=== PATIENT | female | born 1960 | race Caucasian/White ===

== ENCOUNTER 2017-06-16 06:55 | Outpatient (CLI) ==
[2015-11-30 14:35] VITALS: BMI 31.2
--- NOTE | 2017-06-16 09:57 | DI ---
Exam: Cervical spine complete with obliques and flexion and extension. HISTORY: Neck pain. Comparison: MRI cervical spine 12/04/2015. Findings: Anterior, lateral, open-mouth, bilateral oblique and lateral flexion and extension images of the cervical spine are submitted. These demonstrate mild levoscoliosis with multilevel mild to mo derate degenerative disc and facet arthropathy. There is no compression fracture. 2 mm anterolisthe sis of C3 on C4 is noted. The facet joints appear grossly aligned and intact with multilevel osseous neural foraminal encroachment, greatest on the right C5-6. There is no abnormal motion with flexion and extension imaging. The odontoid process appears intact and normally centered. The prevertebral soft tissue within normal limits. The patient is edentulous. Impressions: Mild levoscoliosis. Multilevel mild to moderate degenerative disease with no compressi on fracture. 2 mm anterolisthesis of C3-C4. This appears stable with flexion and extension. No abnormal motion with flexion and extension imaging.
--- NOTE | 2017-06-16 10:29 | MRI ---
EXAM: Cervical spine MRI without contrast. HISTORY: Neck pain. COMPARISON: Cervical spine radiographs 06/16/2079 cervical spine MRI 12/04/2015. TECHNIQUE: Multiplanar, multisequence MR images were acquired cervical spine without contrast. FINDINGS: Patchy T2 hyperintensity is present in the bilateral naveen, greater on the left. There is no cerebellar tonsillar ectopia. The cervical cord has normal signal intensity. Mucosal thickening of fluid opacifies a few right mastoid air cells and a mild number of the left mastoid air cells. Th ere is straightening of the usual cervical lordosis and 1 mm retrolisthesis of C3 on C4. Ventral spo ndylosis is present at C4-5 and C7-T1 and there is osteophytosis with disc space narrowing at C5-6 an d C6-7. The cervical vertebra are normal in height and intrinsic bone marrow signal. There are no p aravertebral masses. Visualized lung apices are clear. C2-3: The intervertebral disc is normal. Moderate right hypertrophic facet arthropathy is present w hich causes mild to moderate right neural foraminal stenosis. C3-4: There is anterolisthesis of C3 on C4 which produces a pseudo disc bulge. Minor bilateral unco vertebral hypertrophy is present, greater on the right and there is mild left and moderate right hype rtrophic facet arthropathy and mild to moderate left and moderate right neural foraminal stenosis. T here is no central canal stenosis. C4-5: There is a posterior disc osteophyte complex with a small central disc protrusion and bilatera l uncovertebral hypertrophy. There is mild left and minor right neural foraminal stenosis. C5-6: There is a diffuse disc osteophyte complex with the disc component larger than the osteophyte component and a superimposed left paracentral disc protrusion that indents the left cervical cord and effaces the left lateral recess where it may adversely contact the ventral left C6 nerve root. Bila teral uncovertebral hypertrophy is present and there is mild spinal stenosis and severe right and mod erately severe left neural foraminal stenosis. AP diameter of the thecal sac is 8.6 mm. C6-7: There is a mild diffuse spondylotic disc bulge and bilateral uncovertebral hypertrophy. This causes mild to moderate left and moderate right neural foraminal stenosis. There is no central canal stenosis. C7-T1: There is a trace anterolisthesis of C7 on T1 and there is a small posterior disc bulge and mi nor bilateral facet arthropathy. IMPRESSION: 1. Stable mild to moderate cervical degenerative spondylosis with mild spinal stenosis at C5-6. 2. Moderate discogenic disease C5-6 with small left paracentral disc protrusion that mildly indents the cervical cord without edema and causes left lateral recess stenosis with possible encroachment on the ventral left C6 nerve root. 3. Multilevel foraminal stenosis.
== END 2017-06-16 06:56 | disposition home or self-care (01) ==
LOC: RAD 06:55
PROVIDERS: ATTEND Orthopaedic Surgery
DX: M54.2 Cervicalgia (principal)

== ENCOUNTER 2017-07-01 12:18 | Outpatient (CLI) ==
[2015-11-30 14:35] VITALS: BMI 31.2
--- NOTE | 2017-07-01 13:12 | DI ---
EXAM: Seven views of the lumbar spine. History: Lower back pain. Comparison: Lumbar spine radiograph 11/30/2015 Findings: No acute fracture or subluxation of the lumbar spine. Moderate to severe disc space narro wing at T11-T12 with endplate sclerosis and osteophyte formation. The lumbar disc space heights are preserved. Cholecystectomy clips. No instability identified with flexion or extension maneuvers Impression: 1. No acute osseous abnormality of the lumbar spine. 2. Moderate to severe degenerative disc disease at T11-T12.
--- NOTE | 2017-07-03 01:20 | MRI ---
MRI of the lumbar spine HISTORY: Low back pain. COMPARISON: 07/19/2014 PROCEDURE: Multiplanar, multisequence MRI protocol including sagittal T1-weighted, sagittal T2-weigh chasity, sagittal inversion recovery, coronal T2-weighted, axial T1-weighted and axial T2-weighted sequen maru. FINDINGS: There are five non-rib bearing lumbar vertebrae. Vertebral alignment demonstrates straight ening of upper lumbar lordosis consistent with earlier examination. Vertebral body height is well ma intained. Marrow signal is within normal limits for age. The intervertebral discs appear normal in height and signal. There is evidence of loss of disc and desiccation, ventral spondylosis and Modic t ype 2 endplate changes at T11-12. The conus medullaris appears normal in position and configuration a nd signal. The caliber of the spinal canal is intrinsically within normal limits. The prevertebral a nd paraspinous soft tissues appear to be within normal limits. Segmental analysis: T12-L1: There is no significant disc bulge at this level. The spinal canal is not significantly narr owed. The subarticular spaces and lateral recesses are not significantly narrowed. The neural foramin a are not stenosed. The conus crosses this level. L1-L2: There is no significant disc bulge at this level. The spinal canal is not significantly narro wed. The subarticular spaces and lateral recesses are not significantly narrowed. The neural foramina are not stenosed. The conus terminates just below this level. L2-L3: There is a modest disc bulge with a small left paramedian protrusion impressing the ventral th ecal sac at this level. The spinal canal is not significantly narrowed. The subarticular spaces and lateral recesses are not significantly narrowed. The neural foramina are not stenosed. L3-L4: There is no significant disc bulge at this level. The spinal canal is not significantly narro wed. The subarticular spaces and lateral recesses are not significantly narrowed. The neural foramina are not stenosed. L4-L5: There is a minimal disc bulge at this level. The spinal canal is not significantly narrowed. The subarticular spaces and lateral recesses are not significantly narrowed. There is minimal/mild fo raminal narrowing consistent with the earlier examination. L5-S1: There is no significant disc bulge at this level. The spinal canal is not significantly narro wed. The subarticular spaces and lateral recesses are not significantly narrowed. The neural foramina are not stenosed. IMPRESSION: 1. The current examination demonstrates stable findings when compared to the patient's prior examinat ion. 2. The lumbar vertebrae remain normal in height, alignment and signal. Intervertebral discs appear we ll maintained with respect to height and signal at the lumbar levels. 3. There is minimal/mild bilateral foraminal stenosis at L4-5 without nerve root impingement consiste nt with the prior examination. 4. The spinal canal is patent at all levels. The remaining neural foramina are widely patent at all other levels. 5. 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
== END 2017-07-01 12:19 | disposition home or self-care (01) ==
LOC: RAD 12:18
PROVIDERS: ATTEND Orthopaedic Surgery
DX: M54.5 Low back pain (principal)

== ENCOUNTER 2017-08-17 10:59 | Outpatient (CLI) | payer OTHER ==
[2015-11-30 14:35] VITALS: BMI 31.2
--- NOTE | 2017-08-17 11:24 | DI ---
Exam: Three x-rays of the right shoulder. Comparison: MRI performed on 04/02/2015. Reason for exam: Right shoulder pain. FINDINGS: No acute fracture or malalignment. The humeral head articulates to the bony glenoid. The clavicle is intact. There is degenerative disease at the acromioclavicular joint space. No unexpla ined calcific soft tissue density or radiopaque retained foreign body. Impression: No acute fracture or dislocation in the right shoulder with mild to moderate degenerative disease
--- NOTE | 2017-08-17 11:26 | DI ---
EXAM: Chest two view, frontal and lateral views. HISTORY: Back pain. Smoking history. Family history lung cancer. COMPARISON: CT 1 day prior. FINDINGS: The heart size is normal. There is no pulmonary vascular congestion. The lungs are clear . No pleural effusion or pneumothorax is seen. No acute osseous abnormality identified. Cholecyste ctomy clips noted. Since the prior study, there has been no significant interval change. IMPRESSION: No acute cardiopulmonary process.
== END 2017-08-17 11:00 | disposition home or self-care (01) ==
LOC: RAD 10:59
PROVIDERS: ATTEND Nurse Practitioner Family
DX: M25.511 Pain in right shoulder (principal); Z80.1 Family history of malignant neoplasm of trachea, bronchus and lung

== ENCOUNTER 2017-09-01 14:32 | Outpatient (CLI) ==
[2015-11-30 14:35] VITALS: BMI 31.2
[2017-09-01 15:08] LABS: BASOPHILS # (AUTO) 0.1 K/uL (0-0.2); BASOPHILS % (AUTO) 0.7 % (0.0-3.0); EOSINOPHILS # (AUTO) 0.2 K/ul (0.0-0.7); EOSINOPHILS % (AUTO) 2.3 % (0.0-7.0); HEMATOCRIT 41.8 % (37.0-47.0); HEMOGLOBIN 14.6 g/dl (12.0-16.0); IMMATURE GRANULOCYTE % (AUTO) 0.5 % (0.0-5.0); LYMPHOCYTES # (AUTO) 2.5 K/uL (0.60-3.4); LYMPHOCYTES % (AUTO) 30.2 (10.0-50.0); MEAN CORPUSCULAR HEMOGLOBIN 30.6 pg (27.0-31.0); MEAN CORPUSCULAR HGB CONC 34.9 (31.8-35.4); MEAN CORPUSCULAR VOLUME 87.6 fl (81.0-99.0); MONOCYTES # (AUTO) 0.6 K/uL (0.4-2.0); MONOCYTES % (AUTO) 7.2 (0-10); NEUTROPHILS # (AUTO) 4.9 K/ul (2.0-6.9); NEUTROPHILS % (AUTO) 59.1; PLATELET COUNT 291 10^3/uL (140-440); RED BLOOD COUNT 4.77 10^6/ul (4.20-5.40); WHITE BLOOD COUNT 8.25 K/ul (4.6-10.2)
[2017-09-01 16:09] LABS: ALBUMIN 3.8 g/dL (3.4-5.0); ALBUMIN/GLOBULIN RATIO 0.86; BILIRUBIN,TOTAL 0.66 mg/dL (0.00-1.20); BUN/CREATININE RATIO 12.5; CALCIUM 9.9 mg/dL (8.2-10.2); CREATININE 0.88 mg/dL (0.60-1.30); TOTAL PROTEIN 8.2 g/dL (6.4-8.2)
== END 2017-09-01 14:33 | disposition home or self-care (01) ==
LOC: LAB 14:32
DX: R10.84 Generalized abdominal pain (principal); R19.7 Diarrhea, unspecified
CPT/HCPCS: 36415; 80053; 85025

== ENCOUNTER 2017-09-06 08:57 | Outpatient (CLI) ==
[2015-11-30 14:35] VITALS: BMI 31.2
--- NOTE | 2017-09-06 10:04 | CT ---
EXAM: CT scan abdomen pelvis with and without contrast HISTORY: Abdominal pain COMPARISON: CT scan abdomen pelvis 01/14/2016 FINDINGS: Contiguous axial images were obtained through the abdomen and pelvis both before and after uneventful administration of intravenous contrast and oral contrast utilizing 5-mm collimation. Sag ittal and coronal reconstructions were imaged and reviewed.. The visualized lung bases are clear. T here has been prior cholecystectomy. Fatty infiltration is seen throughout the liver. The pancreas spleen and adrenal glands have normal enhanced CT appearance. The kidneys excrete contrast normal fa shion bilaterally. The abdominal aorta is normal in course and caliber. The uterus and adnexa are u nremarkable.. There is a normal appendix. The bladder is unremarkable. There is no free fluid or i nflammatory changes.. Review of bone windows reveals no evidence of lytic or blastic lesions. IMPRESSION: Cholecystectomy. Fatty infiltration is seen within the liver. Normal appendix. No evidence of free fluid or inflammatory changes.
== END 2017-09-06 08:58 | disposition home or self-care (01) ==
LOC: RAD 08:57
PROVIDERS: ATTEND Nurse Practitioner
DX: R10.84 Generalized abdominal pain (principal); R19.7 Diarrhea, unspecified; R11.0 Nausea

== ENCOUNTER 2017-09-12 10:43 | Outpatient (CLI) ==
[2015-11-30 14:35] VITALS: BMI 31.2
== END 2017-09-12 10:44 | disposition home or self-care (01) ==
LOC: LAB 10:43
PROVIDERS: ATTEND Nurse Practitioner
DX: R19.7 Diarrhea, unspecified (principal); R10.84 Generalized abdominal pain
CPT/HCPCS: 36415; 87015; 87045; 87493; 87899

== ENCOUNTER 2017-09-16 06:52 | Outpatient (CLI) | payer OTHER ==
[2015-11-30 14:35] VITALS: BMI 31.2
--- NOTE | 2017-09-16 08:18 | US ---
EXAM: ULTRASOUND ABDOMEN LIMITED HISTORY: Upper abdominal pain FINDINGS: Ultrasound abdomen, limited. Veronica-scale ultrasound and color Doppler was performed. Live r size was measured at 13 cm, within normal limits. Slight increased sound attenuation by the liver p arenchyma is suggestive of steatosis. No focal hepatic lesion or evidence of intrahepatic biliary di latation was identified. The main portal vein is patent and hepatopedal. The patient is post cholecystectomy. Normal common bile duct diameter at 0.54 cm. No ascites. Visu alized pancreas was within normal limits. IMPRESSION: 1. Probable fatty liver. 2. Post cholecystectomy state with no common bile duct dilatation or intrahepatic biliary dilatation . No ascites.
== END 2017-09-16 06:53 | disposition home or self-care (01) ==
LOC: RAD 06:52
PROVIDERS: ATTEND Nurse Practitioner
DX: R10.84 Generalized abdominal pain (principal); R10.10 Upper abdominal pain, unspecified; R19.7 Diarrhea, unspecified; L29.0 Pruritus ani

== ENCOUNTER 2017-09-20 08:56 | Outpatient (CLI) | payer OTHER ==
[2015-11-30 14:35] VITALS: BMI 31.2
== END 2017-09-20 08:57 | disposition home or self-care (01) ==
LOC: NONPT 08:56
PROVIDERS: ATTEND Nurse Practitioner
DX: R10.10 Upper abdominal pain, unspecified (principal); R10.84 Generalized abdominal pain; R19.7 Diarrhea, unspecified; L29.0 Pruritus ani

== ENCOUNTER 2018-02-09 09:52 | Outpatient (CLI) | payer OTHER ==
[2015-11-30 14:35] VITALS: BMI 31.2
--- NOTE | 2018-02-09 14:36 | MRI ---
EXAM: MRI of the right knee without contrast COMPARISON: None available. HISTORY: Knee pain following an injury in 2011. Previous surgery involving the meniscus. TECHNIQUE: Multiplanar noncontrast MR images of the right knee were acquired using a 1.2 Dina magne t. FINDINGS: No recent radiographs of the right knee are available for comparison and radiographic bennie elation is recommended. Minimal linear hypointense signal involving Hoffa's fat pad posteromedially suggesting arthrofibrosis related previous arthroscopic surgery. Intermediate signal within the substance of the medial menisc us suggesting intrasubstance degeneration. Minimal blunting of the free edge of the medial meniscus posterior horn/root which may be postoperative or degenerative in nature without fluid signal involvi ng the meniscus to suggest a retear of a postoperative meniscus. The lateral meniscus is intact. Intact anterior and posterior cruciate ligament fibers are identified. There is some thinning of the anterior cruciate ligament which may be related to anatomic variation versus sequela of a chronic sp rain though intact fibers are clearly identified. Medial collateral ligament, lateral collateral lig ament complex and posterolateral corner ligaments are intact. Minimal patellar/quadriceps tendinosis without abnormal subluxation of the patella. There is chondromalacia patella. Mild to moderate thinning of the cartilage in the medial compartmen t. No evidence of an acute fracture or osteomyelitis. No focal marrow lesion. Small joint effusion . Slit-like popliteal cyst. No osteochondral body. IMPRESSION: 1. Postoperative changes of Hoffa's fat pad related to previous arthroscopic surgery. 2. Minimal blunting of the free edge of the medial meniscus of the posterior horn/root which may be postoperative or degenerative in nature. No evidence of a retear of a postoperative meniscus. 3. Minimal patellar/quadriceps tendinosis. 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 Small joint effusion. Slit-like popliteal cyst. 4. Mild thinning of the anterior cruciate ligament which may represent normal anatomic variation lalita sal sequela of a chronic sprain with intact ligament fibers clearly identified.
== END 2018-02-09 09:53 | disposition home or self-care (01) ==
LOC: RAD 09:52
PROVIDERS: ATTEND Specialist
DX: M17.11 Unilateral primary osteoarthritis, right knee (principal); M25.561 Pain in right knee

== ENCOUNTER 2018-05-22 11:45 | Outpatient (CLI) | payer OTHER ==
[2015-11-30 14:35] VITALS: BMI 31.2
--- NOTE | 2018-05-24 09:10 | MAMMO ---
EXAM: Bilateral digital screening mammogram (2-D and 3-D) History: Screening Comparison: Bilateral mammogram 05/10/2016 Findings: MLO and CC views of bilateral breasts demonstrate predominately fatty replaced breast pare nchyma. CAD was reviewed by the radiologist. Tomosynthesis was performed. There are no dominant ma sses, no suspicious microcalcifications and no architectural distortions Impression: Stable negative mammogram. Recommend followup routine screening mammography in 1 year. BIRADS 1
== END 2018-05-22 11:46 | disposition home or self-care (01) ==
LOC: RAD 11:45
PROVIDERS: ATTEND Nurse Practitioner Family
DX: Z12.31 Encounter for screening mammogram for malignant neoplasm of breast (principal)
CPT/HCPCS: 77067